=== PATIENT | female | born 1955 | race Caucasian/White ===

== ENCOUNTER 2025-06-20 06:34 | Day surgery (SDC) | payer MEDICARE, OTHER ==
[~2025-06-20] VITALS: Ht 167.6 cm; Wt 95.5 kg
[~2025-06-20 06:34] MED LIST: SODIUM CHLORIDE 0.9% 1,000 ML ONE
[2025-06-20] MEDS ORDERED: FentaNYL CITRATE PF 100 MCG/2 ML VIAL ONE (07:53)
[2025-06-20] MEDS ORDERED: MIDAZOLAM HCL 2 MG/2 ML VIAL ONE (07:53)
[2025-06-20] MEDS: SODIUM CHLORIDE 0.9% 1,000 ML IV ONE (08:02)
[2025-06-20] MEDS ORDERED: FLUT1BLS15 IH (08:37)
[2025-06-20] MEDS ORDERED: DAPA10TA PO (08:37)
[2025-06-20] MEDS ORDERED: CARV12 PO (08:37)
[2025-06-20] MEDS ORDERED: INSU300I12 SQ (08:37)
[2025-06-20] MEDS ORDERED: ALBU18HF12 IH (08:37)
[2025-06-20] MEDS ORDERED: ASPI-1450 PO (08:37)
[2025-06-20] MEDS ORDERED: LOSA-382 PO (08:37)
[2025-06-20] MEDS ORDERED: MAGN400T57 PO (08:37)
[2025-06-20] MEDS ORDERED: ATOR40TA28 PO (08:37)
[2025-06-20] MEDS ORDERED: FAMO20 PO (08:37)
[2025-06-20] MEDS ORDERED: MONT-35 PO (08:37)
[2025-06-20] MEDS ORDERED: GLIP10TA17 PO (08:37)
[2025-06-20] MEDS ORDERED: CHOL500013 PO (08:37)
[2025-06-20] MEDS ORDERED: METF-1185 PO (08:37)
[2025-06-20] MEDS ORDERED: GABA-1181 PO (08:37)
[2025-06-20] MEDS ORDERED: TIRZ2.5P SQ (08:37)
[2025-06-20] MEDS ORDERED: TRAM50TA5 PO (08:37)
[2025-06-20 09:30] VITALS: PULSE 68; RESP 13; O2SAT 100
[2025-06-20] MEDS ORDERED: LIDOCAINE 2% 11 ML JELLY ONE (12:00)
[2025-06-20] MEDS ORDERED: ALBUTEROL SULFATE 2.5 MG/0.5 ML NEB SOLUTION NEB ONE (12:00)
[2025-06-20] MEDS ORDERED: BENZOCAINE 20% 50 MCG/SPRAY 57 GM ONE (12:00)
[2025-06-20] MEDS ORDERED: LIDOCAINE 4% 50 ML SOLUTION ONE (12:00)
== END 2025-06-20 13:15 | disposition home or self-care (01) ==
LOC: SURGERY 06:34
PROVIDERS: ATTEND Internal Medicine Critical Care Medicine
DX: J38.4 Edema of larynx (principal); B37.0 Candidal stomatitis; R05.3 Chronic cough; R06.2 Wheezing; R04.2 Hemoptysis; E11.9 Type 2 diabetes mellitus without complications; E78.00 Pure hypercholesterolemia, unspecified; J44.9 Chronic obstructive pulmonary disease, unspecified; Z90.49 Acquired absence of other specified parts of digestive tract; Z98.49 Cataract extraction status, unspecified eye
CPT/HCPCS: 31623; 87206; 87101; 87220; 87070; 31624; 71045; 87015; J3010; J2250; J2919; J7030; 88108; J7613; Z7610